=== PATIENT | male | born 1965 | race Caucasian/White ===

== ENCOUNTER 2019-04-11 02:35 | Inpatient (IN) | payer BC ==
[~2019-04-11] VITALS: Ht 177.8 cm; Wt 105.3 kg
[2019-04-11] VITALS (19 sets, daily range): BP systolic 119–158; BP diastolic 91–114; PULSE 86–101; RESP 14–35; Ht 177.8 cm; Wt 105.3 kg
[2019-04-11] MEDS ORDERED: NITROGLYCERIN (SL) 0.4 MG TAB SL ONE (03:30)
--- NOTE | 2019-04-11 03:31 | ERD ---
ER Documentation Chief Complaint Chief Complaint chest pain x 3 days HPI This is a 54-year-old male with chest pain for the past 3 days,. He said he became acutely worse earlier today. Denies fevers chills nausea vomiting. Does complain of mild shortness of breath. Mild nausea but no vomiting. No other current complaints. ROS All systems reviewed and are negative except as per history of present illness. Allergies Allergies: Coded Allergies: No Known Drug Allergies (Verified Allergy, Unknown, 04/11/19) Physical Exam Vitals Vital Signs Date Temp Pulse Resp B/P (MAP) Pulse Ox O2 O2 Flow FiO2 Time Delivery Rate 04/11/19 Nasal 4 03:27 Cannula 04/11/19 97.2 90 18 161/103 90 03:10 (122) Physical Exam Const: No acute distress Head: Atraumatic Eyes: Normal Conjunctiva ENT: Normal External Ears, Nose and Mouth. Neck: Full range of motion. No meningismus. Resp: Clear to auscultation bilaterally Cardio: Regular rate and rhythm, no murmurs Abd: Soft, non tender, non distended. Normal bowel sounds Skin: No petechiae or rashes Back: No midline or flank tenderness Ext: No cyanosis, or edema Neur: Awake and alert Psych: Normal Mood and Affect Results 24 hrs Current Medications Medications Dose Sig/Moises Start Time Status Last (Trade) Ordered Route PRN Stop Time Admin Dose Reason Admin 1 tab ONCE ONCE 04/11/19 Nitroglycerin SL 03:30 04/11/19 03:31 (Nitroglyceri n (Sl Tab) 0.4 Mg) Procedures/MDM EKG: Rate/Rhythm: [Normal Sinus Rhythm] QRS, ST, T-waves: Vision 1 aVL V4 V5 Impression: STEMI Chest X-ray 1V Interpreted by me: Soft Tissue: No acute abnormalities Bones: No acute abnormalities Mediastinum/Cardiac Silhouette/Lungs: [No acute abnormalities] Medical decision making: This is a 54-year-old male with STEMI. Dr. Blake is on-call and is agreed to activate the catheter. Patient will be admitted to panel. Departure Diagnosis: Primary Impression: STEMI (ST elevation myocardial infarction) Involved coronary artery: unspecified coronary artery Qualified Codes: I21.3 - ST elevation (STEMI) myocardial infarction of unspecified site Condition: Critical NYASIA TRIMBLE Apr 11, 2019 03:31
[2019-04-11] MEDS ORDERED: NITROGLYCERIN (IC) 100 MCG/ML INJ ONE (03:52)
[2019-04-11] MEDS ORDERED: VERAPAMIL 5 MG INJ ONE (03:52)
[2019-04-11] MEDS ORDERED: LIDOCAINE 1% (MDV) 20 ML INJ ONE (03:52)
[2019-04-11] MEDS ORDERED: IODIXANOL LOCM 100 ML BTL ONE ×3 (03:52→04:47)
[2019-04-11] MEDS ORDERED: IOHEXOL 350MG/ML 50 ML BTL ONE (03:52)
[2019-04-11] MEDS ORDERED: HEPARIN 1000 UNITS/ML 10 ML INJ ONE (03:52)
[2019-04-11] MEDS ORDERED: FENTAnyl 50 MCG/ML VIAL ONE (03:55)
[2019-04-11] MEDS ORDERED: MIDAZOLAM 1 MG/ML 2 ML INJ ONE (03:56)
[2019-04-11] MEDS ORDERED: ONDANSETRON 4 MG INJ IV PRN (04:00)
[2019-04-11] MEDS ORDERED: morphine 2 MG INJ IV PRN (04:00)
[2019-04-11] MEDS ORDERED: NITROGLYCERIN (SL) 0.4 MG TAB SL PRN (04:00)
[2019-04-11] MEDS ORDERED: DOCUSATE SODIUM 100 MG CAP PO PRN (04:00)
[2019-04-11] MEDS ORDERED: BISACODYL (EC) 5 MG TAB PO PRN (04:00)
[2019-04-11] MEDS ORDERED: ASPIRIN 81 MG TAB ONE (04:01)
--- NOTE | 2019-04-11 04:08 | CONS ---
Assessment/Plan Assessment/Plan Hospital Course (Demo Recall) 54 yo with htn and hypercholesterolemia presents with STEMI, probably extensive given lateral and anterior ST elevations. Imp: STEMI htn, uncontrolled at present hypercholesterolemia hypokalemia Plan: Cor angio. Risks and benefits reviewed, he agrees to proceed and all questions answered. ASA and heparin given in cork slabs sawyer. Echo in am Troponin pending. Will replete K Further plans post procedure Consultation Date/Type/Reason Admit Date/Time Date of Consultation: Apr 11, 2019 Type of Consult Cardiology Reason for Consultation STEMI Requesting Provider: NYASIA TRIMBLE Date/Time of Note DATE: 04/11/19 TIME: 04:03 Hx of Present Illness 54 yo with htn, hyperlipidemia presents w headache and cp x 2 days intermittent, this episode started last night around 10 pm and did not go away. Pain associated with dyspnea. Pt follows with Dr. Chester Nieto, has seen him recently, on metoprolol for hypertension and pravastatin for cholesterol, takes medications regularly, sbp at home 120s-140s over 80s. No smoking, no alcohol at present, no drugs, family history of cva in his father at 54 yo. No plans for upcoming surgeries, no bleeding issues. Constitutional: no complaints Eyes: no complaints ENT: no complaints Respiratory: shortness of breath Cardiovascular: chest pain Gastrointestinal: no complaints Genitourinary: no complaints Musculoskeletal: no complaints Skin: no complaints Neurologic: headache Endocrine: no complaints Lymphatic: no complaints Psychological: no complaints Immunologic: no complaints Past Medical History Medical History: high cholesterol, hypertension Medications Current Medications Sodium Chloride 1,000 ml @ 75 mls/hr [id number] IV ; Start 04/11/19 at 03:50 Ondansetron HCl (Zofran Inj) 4 mg Q6H PRN IV NAUSEA AND/OR VOMITING; Start 04/11/19 at 04:00 Albuterol (Proventil 0.083% (Neb)) 2.5 mg Q4H RESP THERAPY NEB ; Start 04/11/19 at 05:00 Ipratropium [place] (Atrovent 0.02% (Neb)) 0.5 mg Q4H RESP THERAPY NEB ; Start 04/11/19 at 05:00 Nitroglycerin (Nitroglycerin (Sl Tab) 0.4 Mg) 1 tab Q5M PRN SL CHEST PAIN; Start 04/11/19 at 04:00 Acetaminophen (Tylenol Liquid) 650 mg Q6H PRN PO PAIN LEVEL 1-3 OR FEVER; Start 04/11/19 at 04:00 Morphine Sulfate (morphine) 2 mg Q4H PRN IV PAIN LEVEL 7-10; Start 04/11/19 at 04:00 Docusate Sodium (Colace) 100 mg Q12H PRN PO CONSTIPATION; Start 04/11/19 at 04:00 Bisacodyl (Dulcolax) 5 mg DAILY PRN PO CONSTIPATION; Start 04/11/19 at 04:00 Famotidine (Pepcid Iv) 20 mg Q12 IV ; Start 04/11/19 at 09:00 Allergies: Coded Allergies: No Known Drug Allergies (Verified Allergy, Unknown, 04/11/19) Family History Significant Family History: other (father had a cva at 54) Social History Alcohol Use: none Smoking Status: Never smoker Drug Use: none Exam/Review of Systems Vital Signs Vitals Vital Signs Date Temp Pulse Resp B/P (MAP) Pulse Ox O2 O2 Flow FiO2 Time Delivery Rate 04/11/19 106 25 162/111 97 Nasal 4.0 03:34 (128) Cannula 04/11/19 97.2 03:10 Exam Constitutional: alert, oriented, well developed Psych: nl mood/affect Head: normocephalic, atraumatic Eyes: nl conjunctiva, EOMI, nl lids, nl sclera ENMT: nl external ears & nose, nl lips & teeth, nl nasal mucosa & septum Neck: supple; No jvd, No bruits Respiratory: clear to auscultation, normal air movement Cardiovascular: regular rate and rhythm, nl pulses; No murmurs/extra sounds Gastrointestinal: soft, nl liver, spleen, non-tender Musculoskeletal: nl extremities to inspection Extremities: normal pulses; No edema Neurological: nl mental status, nl speech Skin: nl turgor; No rash or lesions Labs Result Diagram: 04/11/19 0324 04/11/19 0324 Results 24hrs Laboratory Tests Test 04/11/19 03:24 White Blood Count 8.0 Red Blood Count 5.49 Hemoglobin 16.0 Hematocrit 47.9 Mean Corpuscular Volume 87.2 Mean Corpuscular Hemoglobin 29.1 Mean Corpuscular Hemoglobin Concent 33.4 Red Cell Distribution Width 12.1 Platelet Count 183 Mean Platelet Volume 10.7 H Immature Granulocytes % 0.400 Neutrophils % 76.8 Lymphocytes % 16.8 Monocytes % 4.4 Eosinophils % 1.1 Basophils % 0.5 Nucleated Red Blood Cells % 0.0 Immature Granulocytes # 0.030 Neutrophils # 6.2 Lymphocytes # 1.4 Monocytes # 0.4 Eosinophils # 0.1 Basophils # 0.0 Nucleated Red Blood Cells # 0.0 Sodium Level 142 Potassium Level 3.4 L Chloride Level 102 Carbon Dioxide Level 27 Anion Gap 13 Blood Urea Nitrogen 13 Creatinine 0.85 Est Glomerular Filtrat Rate mL/min > 60 Glucose Level 255 H Calcium Level 8.8 Total Bilirubin 0.7 Direct Bilirubin 0.00 Indirect Bilirubin 0.7 Aspartate Amino Transf (AST/SGOT) 161 H Alanine Aminotransferase (ALT/SGPT) 67 Alkaline Phosphatase 107 Troponin I Pending B-Type Natriuretic Peptide Pending Total Protein 7.5 Albumin 4.2 Globulin 3.30 H Albumin/Globulin Ratio 1.27 Imaging Imaging EKG shows sinus tachycardia at 103 bpm, ST elevations I, IVL, V1-V5, reciprocal depressions in the inferior leads and V6 Medications Medications Current Medications Sodium Chloride 1,000 ml @ 75 mls/hr [id number] IV ; Start 04/11/19 at 03:50 Ondansetron HCl (Zofran Inj) 4 mg Q6H PRN IV NAUSEA AND/OR VOMITING; Start 04/11/19 at 04:00 Albuterol (Proventil 0.083% (Neb)) 2.5 mg Q4H RESP THERAPY NEB ; Start 04/11/19 at 05:00 Ipratropium [place] (Atrovent 0.02% (Neb)) 0.5 mg Q4H RESP THERAPY NEB ; Start 04/11/19 at 05:00 Nitroglycerin (Nitroglycerin (Sl Tab) 0.4 Mg) 1 tab Q5M PRN SL CHEST PAIN; Start 04/11/19 at 04:00 Acetaminophen (Tylenol Liquid) 650 mg Q6H PRN PO PAIN LEVEL 1-3 OR FEVER; Start 04/11/19 at 04:00 Morphine Sulfate (morphine) 2 mg Q4H PRN IV PAIN LEVEL 7-10; Start 04/11/19 at 04:00 Docusate Sodium (Colace) 100 mg Q12H PRN PO CONSTIPATION; Start 04/11/19 at 04:00 Bisacodyl (Dulcolax) 5 mg DAILY PRN PO CONSTIPATION; Start 04/11/19 at 04:00 Famotidine (Pepcid Iv) 20 mg Q12 IV ; Start 04/11/19 at 09:00 WALI MCCRACKEN Apr 11, 2019 04:08
[2019-04-11] MEDS ORDERED: POTASSIUM CHLORIDE 50 ML ONE (04:16)
--- NOTE | 2019-04-11 04:28 | QN ---
Documentation Comment I put in ICU admission orders for this patient and then went to evaluate the patient for admission. I was notified by the data entry processor Dr. Wolff that the patient's primary care physician is Dr. Chester Nieto. I notified the emergency department Dr. Carter who spoke with Dr. Escamilla who was on-call for , who accepted the patient. I put in a change admit order. SAMIR RIZZO Apr 11, 2019 04:28
[2019-04-11] MEDS: ALBUTEROL 0.083% (NEB) 2.5 MG/3 ML AMP NEB SCH ×5 (05:00→20:13)
[2019-04-11] MEDS: IPRATROPIUM (NEB) 0.5 MG/2.5 ML AMP NEB SCH ×5 (05:00→20:13)
[2019-04-11] MEDS ORDERED: TICAGRELOR 90 MG TABLET ONE (05:03)
[2019-04-11] MEDS ORDERED: SOD CHLORIDE 0.9% 1,000 ML IV SCH (05:12)
--- NOTE | 2019-04-11 05:27 | OPR ---
Date/Time of Note Date/Time of Note DATE: 04/11/19 TIME: 05:18 Operative Report Procedure Date: Apr 11, 2019 Preoperative Diagnosis STEMI Postoperative Diagnosis STEMI anterior wall Operation/Procedure Performed coronary angio, left heart cath, moderate sedation, PCI with stents to prox and mid LAD Surgeon see signature line Fruit Trimmer Vanessa BREAD ROOM HAND Anesthesia Type: moderate sedation Estimated Blood Loss: 100 - 150 ml's Transfusion none Specimen none Grafts/Implants Synergy 2.5x20 to mid LAD and Synergy 3.5x24 to prox LAD Complications none Pt Condition Post Procedure: stable Disposition: other (ICU) Indications 54 year old with 3 days intermittent headache and cp, presenting with STEMI Procedure Description Procedure: Informed consent obtained. Patient brought to the labor economics teacher emergently. Versed and Fentanyl given for conscious sedation. Lidocaine used for local anesthesia. Using modified Seldinger technique, the right radial artery was accessed and a 6f sheath placed. Nitro, heparin, and verapamil given through the side arm of the sheath. All catheters exchanged over a long J wire. A [place] catheter crossed the aortic valve and pressures were measured including a pullback. A JL4 guide and JR4 diagnostic catheter were used to take diagnostic images, engaged the LM and RCA respectively, images taken in multiple projections. It was decided to proceed with PCI of the LAD. Additional heparin given and an ACT checked. A [place] Blue wire was advanced to the distal LAD. A 2.5 x 12 mm balloon was inflated in the proximal and mid lesions. The mid lesion was stented 2.5x20 stent, then the proximal 3.5x24 stent. The mid lesion was then post-dilated in its proximal portion with a 3.0x12 mm noncompliant balloon. Images obtained including a wire out shot demonstrating good apposition of the stents and no evidence of dissection. Patient received Ticagrelor 180 mg at the end of the procedure. The radial sheath was removed and a TR band placed. No complications. Case d/w Dr. Escamilla animal damage control agent for Dr. Nieto. Patient to go to the ICU. Door to balloon time was prolonged due to atypical chief complaint of headache, and as a result a prolonged time from door to initial EKG. Findings: LM- normal LAD - 90% prox which is the culprit lesion, KIERRA 2 flow, lesion length 18 mm. 70% mid, lesion length 14 mm. The remainder of the LAD has moderate diffuse disease. Prox LAD stented with a Synergy 3.5x24 mm stent, and mid LAD with a Synergy 2.5x20 mm stent and post-dilated in the proximal portion with a 3.0x12 mm noncompliant balloon LCX - mild diffuse disease RCA - dominant with mild luminal irregularities LVEDP - 21 WALI MCCRACKEN Apr 11, 2019 05:27
[2019-04-11] MEDS ORDERED: ATORVASTATIN 80 MG TAB PO ONE (05:30)
[2019-04-11] MEDS: SOD CHLORIDE 0.9% 1,000 ML IV SCH ×2 (06:08→18:30)
[2019-04-11] MEDS ORDERED: GLUCOSE GEL 15 GRAM TUBE PO PRN ×2 (08:00)
[2019-04-11] MEDS ORDERED: DEXTROSE 50% 50 ML SYRINGE IV PRN ×2 (08:00)
[2019-04-11] MEDS ORDERED: GLUCAGON 1 MG INJ IM PRN (08:00)
[2019-04-11] MEDS ORDERED: GLUCOSE GEL 15 GRAM TUBE BUCCAL PRN (08:00)
--- NOTE | 2019-04-11 08:47 | HP ---
DATE OF ADMISSION: 04/11/2019 ADMITTING DIAGNOSIS: ST elevation myocardial infarction. HISTORY OF PRESENT ILLNESS: The patient is a 54-year-old male with hypertension, hyperlipidem ia, prediabetes, who presented to the emergency room with intermittent chest pain since Thursday. The patient noted substernal chest pain pressure with associated shortness of breath on Thursday when lifti ng some heavy sinks while working. The pain went away. The patient did not do anything else. The p atient continued to have pain on and off over the weekend and had increasing pain that would not go a way Thursday. The patient walked to the emergency room 2 to 2.5 blocks with some shortness of breath a nd chest pressure during that time. The patient has been having intermittent severe headaches during this time as well. No palpitations, no orthopnea. No fevers, chills or night sweats. REVIEW OF SYSTEMS: Otherwise unremarkable. PAST MEDICAL HISTORY: Hyperlipidemia, hypertension, prediabetes. PAST SURGICAL HISTORY: None. FAMILY HISTORY: Father had a stroke at age 54. SOCIAL HISTORY: No alcohol. No smoking. PHYSICAL EXAMINATION: VITAL SIGNS: Temperature is 98.6, pulse 95, blood pressure 137/101, oxygen saturation 94% on 2 liter s nasal cannula oxygen. The patient presented with a temperature of 97.2, pulse 90, respirations 18, blood pressure 161/103 with an oxygen saturation of 90%. GENERAL: Well-developed, well-nourished male, in no acute distress, lying flat in bed. HEENT: EOMI, PERRLA. Oropharynx is clear except for decreased mucus pooling. NECK: No jugular venous distention, 2+ carotid upstroke without bruits. No lymphadenopathy, no thyr omegaly. CHEST: Scant crackles at bilateral bases, otherwise clear. HEART: Tachycardic, but regular. No murmurs, gallops or rubs noted. ABDOMEN: Mild obesity, no hepatosplenomegaly. No jugular reflux. Normoactive bowel sounds, nontend er. GENITOURINARY: Normal male. No masses. EXTREMITIES: 2+ femoral pulses, posterior tibialis and dorsal pedis 2+. No cyanosis, clubbing or ed beatrice in the extremities. NEUROLOGIC: Nonfocal. LABORATORY DATA: Sodium 142, potassium 3.4, chloride 102, bicarbonate 27, BUN of 13, creatinine 0.85 , glucose of 255. Hemoglobin A1c was 7.5%, total bilirubin 0.7, AST 161, ALT of 67. Alkaline phosph atase is 107. Troponin 4.49. Brain natriuretic peptide 274, albumin 4.2, hemoglobin of 16.0, hemato crit 47.9, platelets 183. White blood cell count 8.0. Chest x-ray shows pulmonary vascular congesti on, cardiomegaly, shallow inspiration with subsegmental atelectasis bilaterally. Degenerative change s in the spine. IMAGING STUDIES: EKG shows anterolateral ST elevation consistent with ST elevation myocardial infarc tion. ASSESSMENT AND PLAN: The patient is a 54-year-old male with hypertension, diabetes, hyperlipi demia, now status post ST elevation myocardial infarction, status post stenting by Dr. Wolff. The patient also with mild congestive heart failure and preliminary ejection fraction by echocardiogram shows global hypokinesis with an ejection fraction of approximately 30%. The patient will be stabili zed in the ICU. Continue on Brilinta, Losartan, atorvastatin, aspirin and metoprolol. Continue with current medications and adjust as needed. We will follow serial CKs, troponins and EKGs. The patie nt will have cardiac rehab consult as well. 2. Hyperlipidemia. Continue with diet and atorvastatin. 3. Diabetes. This is new onset. We will have diabetes educators to the patient, sliding scale with moderate NovoLog scale, diet and we will place the patient on medications prior to discharge. Dictated By: RACHEL MANZANARES MD SR/NTS Conf#: [id number] DID#: [id number] CC: VINCENT BRASWELL MD;*End*
[2019-04-11] MEDS ORDERED: METOPROLOL (XL) 50 MG TAB PO SCH (09:00)
[2019-04-11] MEDS ORDERED: FAMOTIDINE 20 MG INJ IV SCH (09:00)
[2019-04-11] MEDS: LOSARTAN 25 MG TAB PO SCH ×2 (09:00→20:44)
[2019-04-11] MEDS ORDERED: METOPROLOL (XL) 100 MG TAB PO ONE (09:00)
[2019-04-11] MEDS: TICAGRELOR 90 MG TABLET PO SCH ×2 (10:03→20:54)
[2019-04-11] MEDS: ASPIRIN (EC) 81 MG TAB PO SCH (10:09)
[2019-04-11] MEDS: INSULIN ASPART [NOVOLOG] 3 ML PEN SC SCH ×3 (11:30→20:54)
--- NOTE | 2019-04-11 13:56 | RADRPT ---
Echocardiogram Report Patient Name: RACHEL RUDD APatient ID: [id number] : 1965 (54y )Study Date: 04/11/2019 7:38:06 AM Gender: MAccession #: [id number] Tech: SagarApril Conteh [facility] Location: 111 Ref.Physician: SAMIR RIZZO Height(Cm): BSA: Weight(Kg): Quality: AdequateOrder Physician: SAMIR RIZZO Account #: Procedures: Echocardiographic Report: Transthoracic echocardiogram with complete 2D, M-Mode, and doppler examination. Indications: STEMI. Measurements: 2D/M Mode Doppler Measurement Value Normal Range Measurement Value Normal Range LVIDd 2D 3.8 [ 4.2 - 5.8 ] cm AV Peak [place] 1.4 [ 100.0 - 170.0 ] cm/sec LVIDs 2D 3.4 [ 2.5 - 4.0 ] cm AV Peak PG 8.0 [ 2.0 - 9.0 ] mmHg IVSd 2D 1.6 [ 0.6 - 1.0 ] cm MV E Peak [place] 0.7 [ 60.0 - 130.0 ] cm/sec AoR Diam 2D 2.8 [ 2.6 - 3.4 ] cm MV A Peak [place] 1.0 [ 100.0 - 120.0 ] cm/sec LA Dimen 2D 3.4 [ 3.0 - 4.0 ] cm MV E/A 0.7 [ 0.8 - 1.5 ] ratio MV Decel Time 102 [ 104 - 258 ] msec MV E/A 0.7 [ 0.8 - 1.5 ] ratio Findings: Left Ventricle: Normal left ventricular cavity size. Moderate concentric left ventricular hypertrophy. Severe left ventricular systolic dysfunction. Ejection fraction is visually estimated at 25 %. Tissue Doppler/Mitral Doppler indices are consistent with impaired relaxation (Stage I diastolic dysfunction). These segments of the LV are akinetic mid anterior segment, apical anterior segment, apical lateral segment, anterolateral mid segment, apical inferior segment, inferoseptum mid segment, anteroseptum mid segment, apical cap and apical septum segment. Right Ventricle: Normal right ventricular size. Normal right ventricular systolic function. Left Atrium: The left atrium is normal in size. Right Atrium: The right atrium is normal in size. Mitral Valve: Normal appearance and function of the mitral valve with trace physiologic regurgitation. Aortic Valve: No hemodynamically significant aortic stenosis by doppler. Aortic cusps appear mildly calcified. Trace aortic valve regurgitation. Tricuspid Valve: Normal appearance and function of the tricuspid valve with trace physiologic regurgitation. Normal right ventricular systolic pressure. Pulmonic Valve: Pulmonic valve not well visualized. Pericardium: Normal pericardium with no significant pericardial effusion. Aorta: Normal aortic root. IVC: Dilated IVC with respiratory collapse consistent with elevated right atrial pressure. Conclusions: Moderate concentric left ventricular hypertrophy. Severely reduced left ventricular systolic function with a large LAD distribution wall motion abnormality. Grade 1 diastolic dysfunction. Trace aortic regurgitation. Trace tricuspid regurgitation and normal estimated pulmonary pressures. Dilated IVC suggests elevated right atrial pressure. Electronically Signed By: Gabriela Wolff 2019-04-11 13:56:19 PDT
[2019-04-11] MEDS: SPIRONOLACTONE 25 MG TAB PO SCH (14:34)
[2019-04-11] MEDS: ATORVASTATIN 80 MG TAB PO SCH (20:43)
[2019-04-11] MEDS: FAMOTIDINE 20 MG TAB PO SCH (20:44)
[2019-04-12] VITALS (22 sets, daily range): BP systolic 96–153; BP diastolic 65–97; PULSE 78–107; RESP 9–29
[2019-04-12] MEDS: IPRATROPIUM (NEB) 0.5 MG/2.5 ML AMP NEB SCH ×2 (01:09→09:00)
[2019-04-12] MEDS: ALBUTEROL 0.083% (NEB) 2.5 MG/3 ML AMP NEB SCH ×2 (01:09→09:00)
[2019-04-12] MEDS: INSULIN ASPART [NOVOLOG] 3 ML PEN SC SCH ×4 (08:11→21:00)
[2019-04-12] MEDS: ASPIRIN (EC) 81 MG TAB PO SCH (08:13)
[2019-04-12] MEDS: SPIRONOLACTONE 25 MG TAB PO SCH (08:13)
[2019-04-12] MEDS: LOSARTAN 25 MG TAB PO SCH (08:13)
[2019-04-12] MEDS: FAMOTIDINE 20 MG TAB PO SCH ×2 (08:13→20:58)
[2019-04-12] MEDS: METOPROLOL (XL) 50 MG TAB PO SCH (08:13)
[2019-04-12] MEDS: TICAGRELOR 90 MG TABLET PO SCH ×2 (08:14→20:59)
[2019-04-12] MEDS ORDERED: IPRATROPIUM (NEB) 0.5 MG/2.5 ML AMP NEB PRN (11:00)
[2019-04-12] MEDS ORDERED: ALBUTEROL 0.083% (NEB) 2.5 MG/3 ML AMP NEB PRN (11:00)
[2019-04-12] MEDS: ACETAMINOPHEN 650MG/20.3ML CUP PO PRN ×3 (12:25→22:36)
--- NOTE | 2019-04-12 14:46 | RADRPT ---
Vent Rate: 106 bpm RR Interval: 564 msec CA Interval: 175 msec QRS Duration: 97 msec QT Interval: 371 msec QTC Interval: 494 msec P-R-T [place]: 55 - -77 - 85 degrees Sinus tachycardia...rate> 99 Inferior infarct, acute...ST>0.10mV, T upright, II III aVF Anterior infarct, acute..Q >30mS, ST >0.15mV, T neg, V2-V5 Electronically Signed By: Avtar Mackenzie
--- NOTE | 2019-04-12 15:01 | RADRPT ---
Vent Rate: 90 bpm RR Interval: 664 msec AL Interval: 185 msec QRS Duration: 95 msec QT Interval: 409 msec QTC Interval: 502 msec P-R-T [place]: 66 - -85 - 95 degrees Sinus rhythm...normal P axis, V-rate 50- 99 Left anterior fascicular block...axis(240,-40), init forces inf Anterior infarct, recent...Q >30mS, ST >0.15mV, T neg, V2-V5 Prolonged QT interval...QTc >500mS Electronically Signed By: Avtar Mackenzie
--- NOTE | 2019-04-12 15:29 | CONS ---
Assessment/Plan Assessment/Plan Hospital Course (Demo Recall) 54 yo with large anterior wall STEMI, LVEF 25%, with fever and probable pneumonia. Imp: STEMI anterior wall s/p PCI and 2 stents to LAD, prox and mid HTN, now under better control hypercholesterolemia fever, probable nosocomial pneumonia DM2, newly diagnosed Plan: ASA and ticagrelor, high intensity atorvastatin Metoprolol XL 200 mg daily, spironolactone, and will change losartan to Entresto (nyha class III, EF 25%) Patient would benefit from a LifeVest as he is at high risk of sudden cardiac given his recent WI and severely reduced LV systolic function. Patient will ideally go home with a Lifevest to reduce risk of sudden cardiac . 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 If LVEF does not recover, will have to discuss benefit of placing an ICD versus continuing to drive commercially -- if ICD placed he will not be eligible to drive commercially. RX diabetes as per primary, patient has received diabetes education Rx PNA as per primary Consultation Date/Type/Reason Admit Date/Time Apr 11, 2019 at 03:43 Initial Consult Date 04/11/19 Type of Consult Cardiology Requesting Provider: NYASIA TRIMBLE Date/Time of Note DATE: 04/12/19 TIME: 15:17 24 HR Interval Summary Free Text/Dictation Patient has no chest pain, but is coughing. No dyspnea. No wrist pain. Exam/Review of Systems Vital Signs Vitals Vital Signs Date Temp Pulse Resp B/P (MAP) Pulse Ox O2 O2 Flow FiO2 Time Delivery Rate 04/12/19 86 16 125/93 96 Room Air 14:00 (104) 04/12/19 100.5 13:10 04/12/19 21 04:35 04/11/19 2.0 19:50 Intake and Output 04/11/19 04/11/19 04/12/19 1515:00 23:00 07:00 IntakeIntake Total 600 ml 595 ml 275 ml OutputOutput Total 1500 ml 300 ml 1250 ml BalanceBalance -900 ml 295 ml -975 ml Exam Constitutional: alert, oriented, well developed, other (obese) Psych: no complaints, nl mood/affect Head: normocephalic, atraumatic Eyes: EOMI, nl lids ENMT: nl external ears & nose Neck: supple; No jvd, No bruits Respiratory: clear to auscultation, normal air movement Cardiovascular: regular rate and rhythm; No murmurs/extra sounds Gastrointestinal: soft, nl liver, spleen, non-tender Musculoskeletal: nl extremities to inspection Extremities: No edema Neurological: nl mental status, nl speech Skin: diaphoresis Labs Result Diagram: 04/12/19 0535 04/12/19 0535 Results 24hrs Laboratory Tests Test 04/11/19 17:33 04/11/19 20:27 04/12/19 05:35 04/12/19 08:07 Bedside Glucose 206 210 White Blood Count 11.2 #H Red Blood Count 5.22 Hemoglobin 15.2 Hematocrit 44.5 Mean Corpuscular 85.2 Volume Mean Corpuscular 29.1 Hemoglobin Mean Corpuscular 34.2 Hemoglobin Concent Red Cell 12.7 Distribution Width Platelet Count 160 Mean Platelet Volume 11.2 H Immature 0.400 Granulocytes % Neutrophils % 79.9 H Lymphocytes % 9.3 L Monocytes % 9.7 Eosinophils % 0.3 Basophils % 0.4 Nucleated Red Blood 0.0 Cells % Immature 0.050 H Granulocytes # Neutrophils # 9.0 H Lymphocytes # 1.1 Monocytes # 1.1 H Eosinophils # 0.0 Basophils # 0.1 Nucleated Red Blood 0.0 Cells # Sodium Level 136 Potassium Level 3.8 Chloride Level 106 Carbon Dioxide Level 23 Anion Gap 7 Blood Urea Nitrogen 9 Creatinine 0.71 Est Glomerular > 60 Filtrat Rate mL/min Glucose Level 178 Calcium Level 8.6 Triglycerides Level 72 Cholesterol Level 150 LDL Cholesterol, 92 Calculated HDL Cholesterol 44 Cholesterol/HDL 3.4 Ratio Troponin I 105.000 *H Test 04/12/19 08:08 04/12/19 12:14 Bedside Glucose 165 211 Imaging Imaging EKG this am shows sinus tachycardia at 106 bpm, ST elevations have improved in anterior and lateral leads, but with new Q's in anteroseptal and anterior leads. Echo with LVEF 25% and large LAD distribution wall motion abnormality Medications Medications Current Medications Ondansetron HCl (Zofran Inj) 4 mg Q6H PRN IV NAUSEA AND/OR VOMITING; Start 04/11/19 at 04:00 Nitroglycerin (Nitroglycerin (Sl Tab) 0.4 Mg) 1 tab Q5M PRN SL CHEST PAIN; Start 04/11/19 at 04:00 Acetaminophen (Tylenol Liquid) 650 mg Q6H PRN PO PAIN LEVEL 1-3 OR FEVER Last administered on 04/12/19at 12:25; Admin Dose 650 MG; Start 04/11/19 at 04:00 Morphine Sulfate (morphine) 2 mg Q4H PRN IV PAIN LEVEL 7-10; Start 04/11/19 at 04:00 Docusate Sodium (Colace) 100 mg Q12H PRN PO CONSTIPATION; Start 04/11/19 at 04:00 Bisacodyl (Dulcolax) 5 mg DAILY PRN PO CONSTIPATION; Start 04/11/19 at 04:00 Aspirin (Halfprin) 81 mg DAILY PO Last administered on 04/12/19at 08:13; Admin Dose 81 MG; Start 04/11/19 at 09:00 Ticagrelor (Brilinta) 90 mg BID PO Last administered on 04/12/19at 08:14; Admin Dose 90 MG; Start 04/11/19 at 09:00 Atorvastatin Calcium (Lipitor) 80 mg DAILY@21 PO Last administered on 04/11/19at 20:43; Admin Dose 80 MG; Start 04/11/19 at 21:00 Insulin Aspart (Novolog Insulin Pen) NOVOLOG *MODERATE* ALGORITHM WITH MEALS BEDTIME SC Last administered on 04/12/19at 12:16; Admin Dose 4 UNIT; Start 04/11/19 at 11:30 Miscellaneous Information 1 ea NOTE XX ; Start 04/11/19 at 08:00 Glucose (Glutose) 15 gm Q15M PRN PO DECREASED GLUCOSE; Start 04/11/19 at 08:00 Glucose (Glutose) 22.5 gm Q15M PRN PO DECREASED GLUCOSE; Start 04/11/19 at 08:00 Dextrose (D50w Syringe) 25 ml Q15M PRN IV DECREASED GLUCOSE; Start 04/11/19 at 08:00 Dextrose (D50w Syringe) 50 ml Q15M PRN IV DECREASED GLUCOSE; Start 04/11/19 at 08:00 Glucagon (Glucagen) 1 mg Q15M PRN IM DECREASED GLUCOSE; Start 04/11/19 at 08:00 Glucose (Glutose) 15 gm Q15M PRN BUCCAL DECREASED GLUCOSE; Start 04/11/19 at 08:00 Famotidine (Pepcid) 20 mg Q12 PO Last administered on 04/12/19at 08:13; Admin Dose 20 MG; Start 04/11/19 at 21:00 Spironolactone (Aldactone) 25 mg DAILY PO Last administered on 04/12/19at 08:13; Admin Dose 25 MG; Start 04/11/19 at 14:30 Metoprolol Succinate (Toprol Xl) 200 mg DAILY PO Last administered on 04/12/19 08:13; Admin Dose 200 MG; Start 04/12/19 at 09:00 Albuterol (Proventil 0.083% (Neb)) 2.5 mg Q6H RESP THERAPY PRN NEB wheezing; Start 04/12/19 at 11:00 Ipratropium [place] (Atrovent 0.02% (Neb)) 0.5 mg Q6H RESP THERAPY PRN NEB wheezing; Start 04/12/19 at 11:00 Sacubitril/ Valsartan (Entresto 24 Mg-26 Mg) 1 tab BID PO ; Start 04/12/19 at 21:00 WALI MCCRACKEN Apr 12, 2019 15:28
[2019-04-12] MEDS: PIPER-TAZO 3.375 GM IV (PMX) 100 ML IVPB SCH (19:59)
[2019-04-12] MEDS: SACUBITRIL/VALSARTAN (24mg-26mg) TABLET PO SCH (20:58)
[2019-04-12] MEDS: ATORVASTATIN 80 MG TAB PO SCH (20:58)
[2019-04-13] VITALS (11 sets, daily range): BP systolic 96–122; BP diastolic 62–81; PULSE 70–114; RESP 16–20
[2019-04-13] MEDS: PIPER-TAZO 3.375 GM IV (PMX) 100 ML IVPB SCH ×4 (02:33→17:53)
[2019-04-13] MEDS: INSULIN ASPART [NOVOLOG] 3 ML PEN SC SCH ×4 (08:11→21:02)
[2019-04-13] MEDS: ASPIRIN (EC) 81 MG TAB PO SCH (08:13)
[2019-04-13] MEDS: FAMOTIDINE 20 MG TAB PO SCH ×2 (08:14→20:31)
[2019-04-13] MEDS: METOPROLOL (XL) 50 MG TAB PO SCH (08:14)
[2019-04-13] MEDS: SACUBITRIL/VALSARTAN (24mg-26mg) TABLET PO SCH ×2 (08:14→20:31)
[2019-04-13] MEDS: SPIRONOLACTONE 25 MG TAB PO SCH (08:14)
[2019-04-13] MEDS: TICAGRELOR 90 MG TABLET PO SCH ×2 (08:15→21:02)
--- NOTE | 2019-04-13 08:45 | CONS ---
Assessment/Plan Assessment/Plan Hospital Course (Demo Recall) 54 yo with large anterior wall STEMI, LVEF 25%, with fever and probable pneumonia. Imp: STEMI anterior wall s/p PCI and 2 stents to LAD, prox and mid HTN, now under better control hypercholesterolemia fever, probable nosocomial pneumonia DM2, newly diagnosed Plan: ASA and ticagrelor, high intensity atorvastatin Metoprolol XL 200 mg daily, spironolactone, Entresto 24/26 bid (nyha class III, EF 25%) Patient would benefit from a LifeVest as he is at high risk of sudden cardiac given his recent NV and severely reduced LV systolic function. Patient will ideally go home with a Lifevest to reduce risk of sudden cardiac . 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 If LVEF does not recover, will have to discuss benefit of placing an ICD versus continuing to drive commercially -- if ICD placed he will not be eligible to drive commercially. We had this discussion briefly today, and will assess his post-NV progress as an outpatient to make decisions regarding ICD RX diabetes as per primary, patient has received diabetes education Rx PNA as per Dr. Nieto Discussed better diet habits -- pt ate donuts for breakfast, fast food for many meals, ie [employer], discussed importance of better food choice going forward Discharge plans as per Dr. Nieto, patient would benefit from another day of iv antibiotics Consultation Date/Type/Reason Admit Date/Time Apr 11, 2019 at 03:43 Initial Consult Date 04/11/19 Type of Consult Cardiology Requesting Provider: NYASIA TRIMBLE Date/Time of Note DATE: 04/13/19 TIME: 08:40 24 HR Interval Summary Free Text/Dictation Patient complains of a mild cough, no chest pain, no wrist pain, has ambulated, asking questions about medications, exercise, diet. Exam/Review of Systems Vital Signs Vitals Vital Signs Date Temp Pulse Resp B/P (MAP) Pulse Ox O2 O2 Flow FiO2 Time Delivery Rate 04/13/19 99.2 88 20 117/76 96 Room Air 07:12 (90) 04/13/19 21 03:59 04/11/19 2.0 19:50 Intake and Output 04/12/19 04/12/19 04/13/19 1515:00 23:00 07:00 IntakeIntake Total 540 ml 240 ml OutputOutput Total 1100 ml 400 ml 300 ml BalanceBalance -560 ml -160 ml -300 ml Exam Constitutional: alert, oriented, other (obese) Psych: nl mood/affect Head: normocephalic, atraumatic Eyes: EOMI, nl lids, nl sclera ENMT: nl external ears & nose, nl lips & teeth, nl nasal mucosa & septum Neck: supple; No jvd, No bruits Respiratory: clear to auscultation, normal air movement Cardiovascular: regular rate and rhythm, other (right wrist intact, no bruising); No murmurs/extra sounds Gastrointestinal: soft, nl liver, spleen, non-tender Musculoskeletal: nl extremities to inspection Extremities: normal pulses; No edema Neurological: nl mental status, nl speech Skin: nl turgor; No rash or lesions Labs Result Diagram: 04/13/19 0558 04/13/19 0558 Results 24hrs Laboratory Tests Test 04/12/19 12:14 04/12/19 17:23 04/12/19 20:57 04/13/19 05:58 Bedside Glucose 211 198 173 White Blood Count 13.4 H Red Blood Count 5.65 Hemoglobin 16.3 Hematocrit 48.5 Mean Corpuscular 85.8 Volume Mean Corpuscular 28.8 L Hemoglobin Mean Corpuscular 33.6 Hemoglobin Concent Red Cell 12.8 Distribution Width Platelet Count 165 Mean Platelet Volume 11.1 H Immature 0.500 H Granulocytes % Neutrophils % 79.5 H Lymphocytes % 9.5 L Monocytes % 9.7 Eosinophils % 0.4 Basophils % 0.4 Nucleated Red Blood 0.0 Cells % Immature 0.070 H Granulocytes # Neutrophils # 10.7 H Lymphocytes # 1.3 Monocytes # 1.3 H Eosinophils # 0.1 Basophils # 0.1 Nucleated Red Blood 0.0 Cells # Sodium Level 142 Potassium Level 4.0 Chloride Level 107 Carbon Dioxide Level 23 Anion Gap 12 Blood Urea Nitrogen 12 Creatinine 0.76 Est Glomerular > 60 Filtrat Rate mL/min Glucose Level 173 Calcium Level 8.7 Magnesium Level 2.1 Total Bilirubin 1.6 H Direct Bilirubin 0.00 Indirect Bilirubin 1.6 H Aspartate Amino 250 H Transf (AST/SGOT) Alanine 101 H Aminotransferase (AL T/SGPT) Alkaline Phosphatase 82 Total Protein 7.3 Albumin 3.9 Globulin 3.40 H Albumin/Globulin 1.14 Ratio Test 04/13/19 07:58 Bedside Glucose 153 Imaging Imaging Telemetry demonstrates NSR, chart strips show no significant ectopy Medications Medications Current Medications Ondansetron HCl (Zofran Inj) 4 mg Q6H PRN IV NAUSEA AND/OR VOMITING; Start 04/11/19 at 04:00 Nitroglycerin (Nitroglycerin (Sl Tab) 0.4 Mg) 1 tab Q5M PRN SL CHEST PAIN; Start 04/11/19 at 04:00 Acetaminophen (Tylenol Liquid) 650 mg Q6H PRN PO PAIN LEVEL 1-3 OR FEVER Last administered on 04/12/19at 22:36; Admin Dose 650 MG; Start 04/11/19 at 04:00 Morphine Sulfate (morphine) 2 mg Q4H PRN IV PAIN LEVEL 7-10; Start 04/11/19 at 04:00 Docusate Sodium (Colace) 100 mg Q12H PRN PO CONSTIPATION; Start 04/11/19 at 04:00 Bisacodyl (Dulcolax) 5 mg DAILY PRN PO CONSTIPATION; Start 04/11/19 at 04:00 Aspirin (Halfprin) 81 mg DAILY PO Last administered on 04/13/19at 08:13; Admin Dose 81 MG; Start 04/11/19 at 09:00 Ticagrelor (Brilinta) 90 mg BID PO Last administered on 04/13/19at 08:15; Admin Dose 90 MG; Start 04/11/19 at 09:00 Atorvastatin Calcium (Lipitor) 80 mg DAILY@21 PO Last administered on 04/12/19at 20:58; Admin Dose 80 MG; Start 04/11/19 at 21:00 Insulin Aspart (Novolog Insulin Pen) NOVOLOG *MODERATE* ALGORITHM WITH MEALS BEDTIME SC Last administered on 04/13/19at 08:11; Admin Dose 2 UNIT; Start 04/11/19 at 11:30 Miscellaneous Information 1 ea NOTE XX ; Start 04/11/19 at 08:00 Glucose (Glutose) 15 gm Q15M PRN PO DECREASED GLUCOSE; Start 04/11/19 at 08:00 Glucose (Glutose) 22.5 gm Q15M PRN PO DECREASED GLUCOSE; Start 04/11/19 at 08:00 Dextrose (D50w Syringe) 25 ml Q15M PRN IV DECREASED GLUCOSE; Start 04/11/19 at 08:00 Dextrose (D50w Syringe) 50 ml Q15M PRN IV DECREASED GLUCOSE; Start 04/11/19 at 08:00 Glucagon (Glucagen) 1 mg Q15M PRN IM DECREASED GLUCOSE; Start 04/11/19 at 08:00 Glucose (Glutose) 15 gm Q15M PRN BUCCAL DECREASED GLUCOSE; Start 04/11/19 at 08:00 Famotidine (Pepcid) 20 mg Q12 PO Last administered on 04/13/19at 08:14; Admin Dose 20 MG; Start 04/11/19 at 21:00 Spironolactone (Aldactone) 25 mg DAILY PO Last administered on 04/13/19at 08:14; Admin Dose 25 MG; Start 04/11/19 at 14:30 Metoprolol Succinate (Toprol Xl) 200 mg DAILY PO Last administered on 04/13/19at 08:14; Admin Dose 200 MG; Start 04/12/19 at 09:00 Albuterol (Proventil 0.083% (Neb)) 2.5 mg Q6H RESP THERAPY PRN NEB wheezing; Start 04/12/19 at 11:00 Ipratropium [place] (Atrovent 0.02% (Neb)) 0.5 mg Q6H RESP THERAPY PRN NEB wheezing; Start 04/12/19 at 11:00 Sacubitril/ Valsartan (Entresto 24 Mg-26 Mg) 1 tab BID PO Last administered on 04/13/19at 08:14; Admin Dose 1 TAB; Start 04/12/19 at 21:00 Piperacillin Sod/ Tazobactam Sod 100 ml @ 200 mls/hr Q6 IVPB Last administered on 04/13/19at 07:20; Admin Dose 200 MLS/HR; Start 04/12/19 at 18:30; Stop 04/19/19 at 18:29 WALI MCCRACKEN Apr 13, 2019 08:45
--- NOTE | 2019-04-13 10:31 | PN ---
DATE: 04/12/2019 SUBJECTIVE: The patient is feeling better. No chest pain, no shortness of breath, no nausea, no vom iting. OBJECTIVE: VITAL SIGNS: Temperature 98.8, pulse 105 and regular, respirations 22, blood pressure 105/72, and ox ygen saturation 95% on room air. GENERAL: Well-developed, well-nourished male in no acute distress, lying in bed. NECK: No elevated jugular venous pressure. CHEST: Clear to auscultation bilaterally except for scant bibasilar crackles. HEART: Tachycardic, but regular. ABDOMEN: Soft, mild obesity, normoactive bowel sounds. EXTREMITIES: No cyanosis, clubbing or edema. Right wrist catheterization site mild ecchymoses but n o edema, no drainage. IMAGING STUDIES: Chest x-ray shows improvement in vascular prominence, otherwise no infiltrates or o ther noted. LABORATORY DATA: Troponin 105, triglycerides 72, cholesterol 150, LDL of 92, HDL 44. Sodium 136, po tassium 3.8, chloride 106, bicarbonate 23, BUN of 9, creatinine 0.71, blood sugar 178, calcium 8.6, w shelby blood cell count 11.2, hemoglobin 15.5, hematocrit 44.5, platelets of 160. ASSESSMENT AND PLAN: 1. ST elevation myocardial infarction. The patient is doing well with a peak and a decrease in his troponins. The patient is status post angioplasty and stenting and now adjusting medications. The p atient likely is stable for transfer to the telemetry unit, but we will defer to Dr. Wolff for fur ther recommendations. Continue to adjust medications at this time. 2. Diabetes. Stable. Continue with sliding scale and await diabetic education and recommendations, but the patient will need to be on oral medications prior to discharge. 3. Hyperlipidemia. Stable. Continue with high dose atorvastatin and diet. Dictated By: RACHEL MANZANARES MD SR/NTS Conf#: [id number] DID#: [id number] CC: VINCENT BRASWELL MD;*End*
--- NOTE | 2019-04-13 12:21 | PN ---
DATE: 04/13/2019 SUBJECTIVE: The patient complains of mild cough, no chest pain, no shortness of breath. OBJECTIVE: VITAL SIGNS: T-max yesterday of 101.0, now 99.2, pulse of 88 regular, respirations 20, blood pressur e 117/76, oxygen saturation 96% on room air. GENERAL: Well-developed male, in no acute distress, lying in bed. LUNGS: Clear to auscultation bilaterally. HEART: Regular rate and rhythm. There is II/ systolic murmur radiates to the axilla. ABDOMEN: Soft, nontender, mild obesity. EXTREMITIES: No cyanosis, clubbing or edema. NEUROLOGIC: Nonfocal. LABORATORY DATA: Sodium 142, potassium 4.0, chloride 107, bicarbonate 23, BUN of 12, creatinine 0.76 , glucose 173, magnesium 2.1, total bilirubin 1.6, AST of 250, ALT of 101. Alkaline phosphatase 82, white blood cell count 13.4, hemoglobin 16.3, hematocrit 48.5, platelets 165. Portable chest x-ray d ated 04/12/2019 shows decreased congestion, otherwise no infiltrates. ASSESSMENT AND PLAN: 1. Status post Non-ST elevation myocardial infarction/coronary disease/hypertension. The patient is doing well now on telemetry. The patient evaluated for LifeVest yesterday and this will be arranged . We will continue with current medications, telemetry monitoring and adjust as necessary. 2. Fever. The patient spiked temperature yesterday and unclear etiology. Blood cultures and urine cultures are pending at this time. Chest x-ray yesterday showed no infiltrates and today the patient has mild cough, but lung exam seems clear. We will repeat chest x-ray today. We will continue broa d spectrum antibiotics and adjust as necessary. We will also check a procalcitonin. 3. Diabetes, stable. Continue with diet and sliding scale. The patient will likely go on metformin , but as he received contrast dye few days ago we will continue to hold off on this and continue slid ing scale for now. 4. Hyperlipidemia, stable. Continue with diet and medications. Dictated By: RACHEL MANZANARES MD SR/NTS Conf#: [id number] DID#: [id number] CC: VINCENT BRASWELL MD;*EndCC*
[2019-04-13] MEDS: ATORVASTATIN 80 MG TAB PO SCH (20:31)
[2019-04-14] VITALS (12 sets, daily range): BP systolic 93–114; BP diastolic 61–77; PULSE 60–80; RESP 16–20
[2019-04-14] MEDS: PIPER-TAZO 3.375 GM IV (PMX) 100 ML IVPB SCH ×5 (00:08→23:49)
[2019-04-14] MEDS: INSULIN ASPART [NOVOLOG] 3 ML PEN SC SCH ×4 (07:55→21:00)
[2019-04-14] MEDS: metFORMIN 500 MG TAB PO SCH ×2 (09:34→17:29)
[2019-04-14] MEDS: FAMOTIDINE 20 MG TAB PO SCH ×2 (09:34→20:18)
[2019-04-14] MEDS: ASPIRIN (EC) 81 MG TAB PO SCH (09:34)
[2019-04-14] MEDS: SACUBITRIL/VALSARTAN (24mg-26mg) TABLET PO SCH ×2 (09:34→20:18)
[2019-04-14] MEDS: SPIRONOLACTONE 25 MG TAB PO SCH (09:34)
[2019-04-14] MEDS: METOPROLOL (XL) 50 MG TAB PO SCH (09:35)
[2019-04-14] MEDS: TICAGRELOR 90 MG TABLET PO SCH ×2 (10:05→20:35)
--- NOTE | 2019-04-14 10:33 | PN ---
DATE: 04/14/2019 SUBJECTIVE: The patient is feeling better, minimal cough, no chest pain, no shortness of breath. OBJECTIVE: VITAL SIGNS: T-max 99.6, now 97.2, pulse 77 and regular, respirations 20, blood pressure 102/73, oxy gen saturation 97% on room air. LUNGS: Clear to auscultation bilaterally with scant rhonchi that decreased with cough. HEART: Regular rate and rhythm, II/ systolic ejection murmur to the axilla. ABDOMEN: Soft, nontender, normoactive bowel sounds. EXTREMITIES: No cyanosis, clubbing or edema. NEUROLOGIC: Nonfocal. LABORATORY DATA: Sodium 142, potassium is pending, chloride 108, bicarbonate 24, BUN 15, creatinine 0.87, blood sugar 173, magnesium 2.1, AST of 130, ALT of 75, alkaline phosphatase is 71. White blood cell count 9.6, hemoglobin 15.7, hematocrit 46.6, platelets 175. ASSESSMENT AND PLAN: 1. Status post ST elevated myocardial infarction/coronary artery disease/hypertension. The patient is [place] Heart Association class 3, congestive heart disease with ejection fraction of approximate ly 25%. The patient has a LifeVest and will be discharged home with this. We will continue with cur rent medications, treatment plan and post-hospital the patient will be reevaluated to see if he will require implantable defibrillator. 2. Acromial pneumonia, stable with decreasing white blood cell count decreasing fever and ongoing go od oxygenation. We will continue with IV antibiotics and anticipate changing to oral antibiotics pina orrow. We will recheck procalcitonin tomorrow as well. 3. Diabetes, stable. Continue with sliding scale insulin and start metformin today at 500 mg b.i.d. 4. Continue with diet, weight loss and discharge the patient home with a glucometer. 5. Hyperlipidemia, stable. Continue with medications and diet. Dictated By: RACHEL MANZANARES MD SR/NTS Conf#: [id number] DID#: [id number] CC: VINCENT BRASWELL MD;*End*
--- NOTE | 2019-04-14 16:27 | CONS ---
Assessment/Plan Assessment/Plan Hospital Course (Demo Recall) 54 yo with large anterior wall STEMI, LVEF 25%, with fever and probable pneumonia. Imp: STEMI anterior wall s/p PCI and 2 stents to LAD, prox and mid HTN, now under better control hypercholesterolemia fever, nosocomial pneumonia DM2, newly diagnosed Plan: ASA and ticagrelor, high intensity atorvastatin Metoprolol XL 200 mg daily, spironolactone, Entresto 24/26 bid (nyha class III, EF 25%) Home with Lifevest to reduce risk of sudden cardiac . RX diabetes as per primary, patient has received diabetes education Rx PNA as per Dr. Nieto, on IV antibiotics, which can be switched to PO tomorrow Discussed better diet habits and exercise Discussed importance of medication compliance. If ANY issue with obtaining meds, he knows to contact me 18/05 Discharge plans as per Dr. Nieto, possible d/c tomorrow, he is stable for discharge from a cardiac standpoint Consultation Date/Type/Reason Admit Date/Time Apr 11, 2019 at 03:43 Initial Consult Date 04/11/19 Type of Consult Cardiology Requesting Provider: NYASIA TRIMBLE Date/Time of Note DATE: 04/14/19 TIME: 16:24 24 HR Interval Summary Free Text/Dictation In bed, mother is at bedside. Has no chest pain, no wrist pain, feels well, has [employer] LifeVest in the room, says he's confident that he knows how to wear and use it. Exam/Review of Systems Vital Signs Vitals Vital Signs Date Temp Pulse Resp B/P (MAP) Pulse Ox O2 O2 Flow FiO2 Time Delivery Rate 04/14/19 98.4 64 20 93/62 (72) 97 Room Air 15:08 04/13/19 21 03:59 04/11/19 2.0 19:50 Intake and Output 04/13/19 04/13/19 04/14/19 1515:00 23:00 07:00 IntakeIntake Total 1160 ml 440 ml 1600 ml OutputOutput Total 1200 ml 1 ml BalanceBalance -40 ml 439 ml 1600 ml Exam Constitutional: alert, oriented, well developed Psych: no complaints, nl mood/affect Head: normocephalic, atraumatic Eyes: EOMI, nl lids ENMT: nl external ears & nose Neck: No supple, No jvd, No bruits Respiratory: clear to auscultation, normal air movement Cardiovascular: regular rate and rhythm, nl pulses, other (right wrist intact, no hematoma, good pulse); No murmurs/extra sounds Gastrointestinal: soft, non-tender Musculoskeletal: nl extremities to inspection Extremities: normal pulses; No edema Neurological: nl mental status, nl speech Skin: nl turgor Labs Result Diagram: 04/14/19 0547 04/14/19 0547 Results 24hrs Laboratory Tests Test 04/13/19 17:43 04/13/19 20:34 04/14/19 02:37 04/14/19 05:47 Bedside Glucose 183 228 H 201 White Blood Count 9.6 # Red Blood Count 5.35 Hemoglobin 15.7 Hematocrit 46.6 Mean Corpuscular 87.1 Volume Mean Corpuscular 29.3 Hemoglobin Mean Corpuscular 33.7 Hemoglobin Concent Red Cell 12.6 Distribution Width Platelet Count 175 Mean Platelet Volume 11.2 H Immature 0.400 Granulocytes % Neutrophils % 71.0 Lymphocytes % 16.3 Monocytes % 9.7 Eosinophils % 2.0 Basophils % 0.6 Nucleated Red Blood 0.0 Cells % Immature 0.040 H Granulocytes # Neutrophils # 6.8 Lymphocytes # 1.6 Monocytes # 0.9 Eosinophils # 0.2 Basophils # 0.1 Nucleated Red Blood 0.0 Cells # Sodium Level 142 Potassium Level 4.3 Chloride Level 108 Carbon Dioxide Level 24 Anion Gap 10 Blood Urea Nitrogen 15 Creatinine 0.87 Est Glomerular > 60 Filtrat Rate mL/min Glucose Level 173 Calcium Level 8.8 Magnesium Level 2.1 Total Bilirubin 1.0 Direct Bilirubin 0.00 Indirect Bilirubin 1.0 Aspartate Amino 130 H Transf (AST/SGOT) Alanine 75 H Aminotransferase (AL T/SGPT) Alkaline Phosphatase 71 Total Protein 6.8 Albumin 3.6 Globulin 3.20 Albumin/Globulin 1.12 Ratio Test 04/14/19 07:56 04/14/19 11:26 Bedside Glucose 137 206 Medications Medications Current Medications Ondansetron HCl (Zofran Inj) 4 mg Q6H PRN IV NAUSEA AND/OR VOMITING; Start 04/11/19 at 04:00 Nitroglycerin (Nitroglycerin (Sl Tab) 0.4 Mg) 1 tab Q5M PRN SL CHEST PAIN; Start 04/11/19 at 04:00 Acetaminophen (Tylenol Liquid) 650 mg Q6H PRN PO PAIN LEVEL 1-3 OR FEVER Last administered on 04/12/19at 22:36; Admin Dose 650 MG; Start 04/11/19 at 04:00 Morphine Sulfate (morphine) 2 mg Q4H PRN IV PAIN LEVEL 7-10; Start 04/11/19 at 04:00 Docusate Sodium (Colace) 100 mg Q12H PRN PO CONSTIPATION; Start 04/11/19 at 04:00 Bisacodyl (Dulcolax) 5 mg DAILY PRN PO CONSTIPATION; Start 04/11/19 at 04:00 Aspirin (Halfprin) 81 mg DAILY PO Last administered on 04/14/19at 09:34; Admin Dose 81 MG; Start 04/11/19 at 09:00 Ticagrelor (Brilinta) 90 mg BID PO Last administered on 04/14/19at 10:05; Admin Dose 90 MG; Start 04/11/19 at 09:00 Atorvastatin Calcium (Lipitor) 80 mg DAILY@21 PO Last administered on 04/13/19at 20:31; Admin Dose 80 MG; Start 04/11/19 at 21:00 Insulin Aspart (Novolog Insulin Pen) NOVOLOG *MODERATE* ALGORITHM WITH MEALS BEDTIME SC Last administered on 04/14/19at 11:47; Admin Dose 4 UNIT; Start 04/11/19 at 11:30 Miscellaneous Information 1 ea NOTE XX ; Start 04/11/19 at 08:00 Glucose (Glutose) 15 gm Q15M PRN PO DECREASED GLUCOSE; Start 04/11/19 at 08:00 Glucose (Glutose) 22.5 gm Q15M PRN PO DECREASED GLUCOSE; Start 04/11/19 at 08:00 Dextrose (D50w Syringe) 25 ml Q15M PRN IV DECREASED GLUCOSE; Start 04/11/19 at 08:00 Dextrose (D50w Syringe) 50 ml Q15M PRN IV DECREASED GLUCOSE; Start 04/11/19 at 08:00 Glucagon (Glucagen) 1 mg Q15M PRN IM DECREASED GLUCOSE; Start 04/11/19 at 08:00 Glucose (Glutose) 15 gm Q15M PRN BUCCAL DECREASED GLUCOSE; Start 04/11/19 at 08:00 Famotidine (Pepcid) 20 mg Q12 PO Last administered on 04/14/19 09:34; Admin Dose 20 MG; Start 04/11/19 at 21:00 Spironolactone (Aldactone) 25 mg DAILY PO Last administered on 04/14/19 09:34; Admin Dose 25 MG; Start 04/11/19 at 14:30 Metoprolol Succinate (Toprol Xl) 200 mg DAILY PO Last administered on 04/14/19 09:35; Admin Dose 200 MG; Start 04/12/19 at 09:00 Albuterol (Proventil 0.083% (Neb)) 2.5 mg Q6H RESP THERAPY PRN NEB wheezing; Start 04/12/19 at 11:00 Ipratropium [place] (Atrovent 0.02% (Neb)) 0.5 mg Q6H RESP THERAPY PRN NEB wheezing; Start 04/12/19 at 11:00 Sacubitril/ Valsartan (Entresto 24 Mg-26 Mg) 1 tab BID PO Last administered on 04/14/19 09:34; Admin Dose 1 TAB; Start 04/12/19 at 21:00 Piperacillin Sod/ Tazobactam Sod 100 ml @ 200 mls/hr Q6 IVPB Last administered on 04/14/19at 11:37; Admin Dose 200 MLS/HR; Start 04/12/19 at 18:30; Stop 04/19/19 at 18:29 Metformin HCl (Glucophage) 500 mg BID WITH MEALS PO Last administered on 04/14/19 09:34; Admin Dose 500 MG; Start 04/14/19 at 08:30 WALI MCCRACKEN Apr 14, 2019 16:27
[2019-04-14] MEDS: ATORVASTATIN 80 MG TAB PO SCH (20:18)
[2019-04-15] VITALS: PULSE 66
[2019-04-15 03:18] VITALS: BP 108/70; PULSE 67; RESP 20
[2019-04-15 04:00] VITALS: PULSE 69
[2019-04-15 04:54] VITALS: PULSE 44
[2019-04-15] MEDS: PIPER-TAZO 3.375 GM IV (PMX) 100 ML IVPB SCH (06:04)
[2019-04-15] MEDS: metFORMIN 500 MG TAB PO SCH (08:00)
--- NOTE | 2019-04-15 08:00 | PDOCDIS ---
Discharge Instructions DIAGNOSIS Discharge Diagnosis Myocardial infarction(heart attack); s/p stent CONDITION [id number] Patient Condition: [id number] Good HOME CARE INSTRUCTIONS: [id number] Special Diet: [id number] low fat/low chol 1800 calorie ACTIVITY: [id number] Activity Restrictions: [id number] Slowly Increase Activity FOLLOW UP/APPOINTMENTS Follow-up Plan Follow up with Dr. Nieto within 2weeks; call for appointment; follow up with Dr. Wolff per her recommendations SCHOOL/WORK RELEASE May return to School/Work on: May 23, 2019 RACHEL NIETO MD- Apr 15, 2019 08:00
[2019-04-15 08:05] VITALS: BP 110/66; PULSE 78; RESP 18
[2019-04-15] MEDS ORDERED: NITR0.4T32 SL (08:06)
[2019-04-15] MEDS ORDERED: METO-319 PO (08:06)
[2019-04-15] MEDS ORDERED: FAMO20TA18 PO (08:06)
[2019-04-15] MEDS ORDERED: ASPI-1044 PO (08:06)
[2019-04-15] MEDS ORDERED: TICA90TA PO (08:06)
[2019-04-15] MEDS ORDERED: ATOR-2 PO (08:06)
[2019-04-15] MEDS ORDERED: SPIR25TA PO (08:06)
[2019-04-15] MEDS ORDERED: SACU1TAB PO (08:06)
[2019-04-15] MEDS ORDERED: METF-849 PO (08:06)
[2019-04-15] MEDS ORDERED: AMOX1TAB10 PO (08:12)
[2019-04-15 08:21] VITALS: PULSE 68
[2019-04-15] MEDS: INSULIN ASPART [NOVOLOG] 3 ML PEN SC SCH (08:52)
--- NOTE | 2019-04-15 08:52 | PN ---
DATE: 04/15/2019 SUBJECTIVE: The patient is feeling well, no chest pain, no shortness of breath, minimal cough. OBJECTIVE: VITAL SIGNS: Temperature 98.8, pulse 69, but as low as 44, respirations 20, blood pressure 108/70, o xygen saturation 96% on room air. GENERAL: Well-developed, well-nourished male in no acute distress. LUNGS: Clear to auscultation bilaterally. HEART: Regular rate and rhythm. ABDOMEN: Soft, nontender. Mild to moderate obesity. EXTREMITIES: No cyanosis, clubbing or edema. NEUROLOGIC: Nonfocal. LABORATORY DATA: Procalcitonin is 0.19, AST of 94, ALT of 82. Sodium 139, potassium 4.9, chloride 1 08, bicarbonate 24, BUN of 14, creatinine 0.92, blood sugar 151. White blood cell count 7.6, hemoglo bin 15.1, hematocrit 45.1, platelets 184. ASSESSMENT AND PLAN: 1. Status post Non-ST elevation myocardial infarction/coronary artery disease with colostomy [place] [employer] class 3 with ejection fraction of 25%. The patient is stable for discharge to [facility] on multiple medications. The patient will be discharged home on; a. Brilinta 90 mg b.i.d. b. Metoprolol XL 200 mg daily. c. Atorvastatin 80 mg daily. d. Nitrostat 0.4 mg p.r.n. e. Entresto b.i.d. f. Spironolactone 25 mg daily. The patient is to follow up with Dr. Wolff. The patient also will be discharged home with a Life est reduce risk of sudden cardiac . The patient will need to contact Dr. Wolff's office to [facility] followup appointment. 2. Hyperlipidemia. We will continue with diet and atorvastatin at 80 mg daily. 3. Diabetes. We will continue with metformin 500 mg b.i.d. along with diet. The patient will also get prescription for a glucometer. 4. Pneumonia. The patient will be discharged home on Augmentin 875 mg b.i.d. for the next 5 days. DISCHARGE PLAN: The patient is stable for discharge to home with followup with Dr. Nieto within the next [address] Wolff per her recommendations. The patient will remain off work at least unt ia 05/23/2019 and this will be reevaluated depending on his overall progress and recovery from the he art attack. Dictated By: RACHEL NIETO MD SR/NTS Conf#: [id number] DID#: [id number] CC: VINCENT BRASWELL MD;*EndCC*
[2019-04-15] MEDS: SPIRONOLACTONE 25 MG TAB PO SCH (09:40)
[2019-04-15] MEDS: SACUBITRIL/VALSARTAN (24mg-26mg) TABLET PO SCH (09:40)
[2019-04-15] MEDS: METOPROLOL (XL) 50 MG TAB PO SCH (09:40)
[2019-04-15] MEDS: FAMOTIDINE 20 MG TAB PO SCH (09:40)
[2019-04-15] MEDS: ASPIRIN (EC) 81 MG TAB PO SCH (09:40)
[2019-04-15] MEDS: TICAGRELOR 90 MG TABLET PO SCH (09:56)
--- NOTE | 2019-04-15 09:57 | CONS ---
Assessment/Plan Assessment/Plan Hospital Course (Demo Recall) 54 yo with large anterior wall STEMI, LVEF 25%, course complicated by nosocomial pneumonia. Imp: STEMI anterior wall s/p PCI and 2 stents to LAD, prox and mid HTN, controlled hypercholesterolemia nosocomial pneumonia DM2, newly diagnosed Plan: Home today ASA and ticagrelor, high intensity atorvastatin Metoprolol XL 200 mg daily, spironolactone, Entresto 24/26 bid (nyha class III, EF 25%) Home with Lifevest to reduce risk of sudden cardiac . RX diabetes as per primary, patient has received diabetes education Rx PNA as per Dr. Nieto Discussed better diet habits and exercise Discussed importance of medication compliance. If ANY issue with obtaining meds, he knows to contact me 18/05 Consultation Date/Type/Reason Admit Date/Time Apr 11, 2019 at 03:43 Initial Consult Date 04/11/19 Type of Consult Cardiology Requesting Provider: NYASIA TRIMBLE Date/Time of Note DATE: 04/15/19 TIME: 09:54 24 HR Interval Summary Free Text/Dictation Feels well this morning. Dr. Nieto has already rounded and entered discharge orders and provided the patient with Entresto samples. He has no chest rasmussen, no dyspnea and feels ready to go home. Exam/Review of Systems Vital Signs Vitals Vital Signs Date Temp Pulse Resp B/P (MAP) Pulse Ox O2 O2 Flow FiO2 Time Delivery Rate 04/15/19 68 08:21 04/15/19 98.6 18 110/66 97 Room Air 08:05 (81) 04/13/19 21 03:59 04/11/19 2.0 19:50 Intake and Output 04/14/19 04/14/19 04/15/19 1515:00 23:00 07:00 IntakeIntake Total 2100 ml 3600 ml 1200 ml OutputOutput Total 1804 ml 1803 ml BalanceBalance 296 ml 1797 ml 1200 ml Exam Constitutional: alert, oriented, well developed Psych: no complaints, nl mood/affect Head: normocephalic, atraumatic Eyes: EOMI, nl lids, nl sclera ENMT: nl external ears & nose Neck: supple; No jvd, No bruits Respiratory: clear to auscultation, normal air movement Cardiovascular: regular rate and rhythm; No murmurs/extra sounds Gastrointestinal: soft, nl liver, spleen, non-tender Musculoskeletal: nl extremities to inspection Extremities: No edema Neurological: nl mental status, nl speech Skin: nl turgor Labs Result Diagram: 04/15/19 0554 04/15/19 0554 Results 24hrs Laboratory Tests Test 04/14/19 11:26 04/14/19 17:30 04/14/19 20:15 04/15/19 05:54 Bedside Glucose 206 139 169 White Blood Count 7.6 # Red Blood Count 5.18 Hemoglobin 15.1 Hematocrit 45.1 Mean Corpuscular 87.1 Volume Mean Corpuscular 29.2 Hemoglobin Mean Corpuscular 33.5 Hemoglobin Concent Red Cell 12.8 Distribution Width Platelet Count 184 Mean Platelet Volume 11.2 H Immature 0.500 H Granulocytes % Neutrophils % 65.2 Lymphocytes % 20.4 Monocytes % 9.8 Eosinophils % 3.4 Basophils % 0.7 Nucleated Red Blood 0.0 Cells % Immature 0.040 H Granulocytes # Neutrophils # 5.0 Lymphocytes # 1.6 Monocytes # 0.8 Eosinophils # 0.3 Basophils # 0.1 Nucleated Red Blood 0.0 Cells # Sodium Level 139 Potassium Level 4.9 Chloride Level 108 Carbon Dioxide Level 24 Anion Gap 7 Blood Urea Nitrogen 14 Creatinine 0.92 Est Glomerular > 60 Filtrat Rate mL/min Glucose Level 151 Calcium Level 8.7 Magnesium Level 2.0 Total Bilirubin 0.8 Direct Bilirubin 0.00 Indirect Bilirubin 0.8 Aspartate Amino 94 H Transf (AST/SGOT) Alanine 82 H Aminotransferase (AL T/SGPT) Alkaline Phosphatase 71 Total Protein 6.8 Albumin 3.5 Globulin 3.30 H Albumin/Globulin 1.06 Ratio Procalcitonin 0.19 H Test 04/15/19 07:58 Bedside Glucose 145 Medications Medications Current Medications Ondansetron HCl (Zofran Inj) 4 mg Q6H PRN IV NAUSEA AND/OR VOMITING; Start 04/11/19 at 04:00 Nitroglycerin (Nitroglycerin (Sl Tab) 0.4 Mg) 1 tab Q5M PRN SL CHEST PAIN; Start 04/11/19 at 04:00 Acetaminophen (Tylenol Liquid) 650 mg Q6H PRN PO PAIN LEVEL 1-3 OR FEVER Last administered on 04/12/19at 22:36; Admin Dose 650 MG; Start 04/11/19 at 04:00 Morphine Sulfate (morphine) 2 mg Q4H PRN IV PAIN LEVEL 7-10; Start 04/11/19 at 04:00 Docusate Sodium (Colace) 100 mg Q12H PRN PO CONSTIPATION; Start 04/11/19 at 04:00 Bisacodyl (Dulcolax) 5 mg DAILY PRN PO CONSTIPATION; Start 04/11/19 at 04:00 Aspirin (Halfprin) 81 mg DAILY PO Last administered on 04/14/19at 09:34; Admin Dose 81 MG; Start 04/11/19 at 09:00 Ticagrelor (Brilinta) 90 mg BID PO Last administered on 04/14/19at 20:35; Admin Dose 90 MG; Start 04/11/19 at 09:00 Atorvastatin Calcium (Lipitor) 80 mg DAILY@21 PO Last administered on 04/14/19at 20:18; Admin Dose 80 MG; Start 04/11/19 at 21:00 Insulin Aspart (Novolog Insulin Pen) NOVOLOG *MODERATE* ALGORITHM WITH MEALS BEDTIME SC Last administered on 04/15/19at 08:52; Admin Dose 2 UNIT; Start 04/11/19 at 11:30 Miscellaneous Information 1 ea NOTE XX ; Start 04/11/19 at 08:00 Glucose (Glutose) 15 gm Q15M PRN PO DECREASED GLUCOSE; Start 04/11/19 at 08:00 Glucose (Glutose) 22.5 gm Q15M PRN PO DECREASED GLUCOSE; Start 04/11/19 at 08:00 Dextrose (D50w Syringe) 25 ml Q15M PRN IV DECREASED GLUCOSE; Start 04/11/19 at 08:00 Dextrose (D50w Syringe) 50 ml Q15M PRN IV DECREASED GLUCOSE; Start 04/11/19 at 08:00 Glucagon (Glucagen) 1 mg Q15M PRN IM DECREASED GLUCOSE; Start 04/11/19 at 08:00 Glucose (Glutose) 15 gm Q15M PRN BUCCAL DECREASED GLUCOSE; Start 04/11/19 at 08:00 Famotidine (Pepcid) 20 mg Q12 PO Last administered on 04/14/19at 20:18; Admin Dose 20 MG; Start 04/11/19 at 21:00 Spironolactone (Aldactone) 25 mg DAILY PO Last administered on 04/14/19at 09:34; Admin Dose 25 MG; Start 04/11/19 at 14:30 Metoprolol Succinate (Toprol Xl) 200 mg DAILY PO Last administered on 04/14/19at 09:35; Admin Dose 200 MG; Start 04/12/19 at 09:00 Albuterol (Proventil 0.083% (Neb)) 2.5 mg Q6H RESP THERAPY PRN NEB wheezing; Start 04/12/19 at 11:00 Ipratropium [place] (Atrovent 0.02% (Neb)) 0.5 mg Q6H RESP THERAPY PRN NEB wheezing; Start 04/12/19 at 11:00 Sacubitril/ Valsartan (Entresto 24 Mg-26 Mg) 1 tab BID PO Last administered on 04/14/19at 20:18; Admin Dose 1 TAB; Start 04/12/19 at 21:00 Piperacillin Sod/ Tazobactam Sod 100 ml @ 200 mls/hr Q6 IVPB Last administered on 04/15/19at 06:04; Admin Dose 200 MLS/HR; Start 04/12/19 at 18:30; Stop 04/19/19 at 18:29 Metformin HCl (Glucophage) 500 mg BID WITH MEALS PO Last administered on 04/15/19at 08:00; Admin Dose 500 MG; Start 04/14/19 at 08:30 WALI MCCRACKEN Apr 15, 2019 09:56
== END 2019-04-15 11:10 | disposition home or self-care (01) | DRG 246 ==
LOC: E/R 02:35 → REC 03:43 → EDBEDREQ 04:10 → ICU 05:45 → TEL 04-12 17:06
PROVIDERS: ADMIT Internal Medicine; ATTEND Internal Medicine
PROC: B211YZZ Fluoroscopy of Multiple Coronary Arteries using Other Contrast (ICD-10-PCS; 2019-04-11)
PROC: 027035Z Dilation of Coronary Artery, One Artery with Two Drug-eluting Intraluminal Devices, Percutaneous Approach (ICD-10-PCS; principal; 2019-04-11 03:45)
PROC: 4A023N7 Measurement of Cardiac Sampling and Pressure, Left Heart, Percutaneous Approach (ICD-10-PCS; 2019-04-11 03:45)
DX: I21.09 ST elevation (STEMI) myocardial infarction involving other coronary artery of anterior wall (principal); J18.9 Pneumonia, unspecified organism; E11.9 Type 2 diabetes mellitus without complications; E78.5 Hyperlipidemia, unspecified; E87.6 Hypokalemia; I11.0 Hypertensive heart disease with heart failure; I50.9 Heart failure, unspecified; I25.10 Atherosclerotic heart disease of native coronary artery without angina pectoris; Y95 Nosocomial condition; E66.9 Obesity, unspecified; Z68.33 Body mass index [BMI] 33.0-33.9, adult
CPT/HCPCS: 36415; 71045; 80048; 80053; 80061; 82550; 82553; 82962; 83036; 83735; 83880; 84145; 84484; 85025; 87081; 87086; 92928; 93005; 93306; 93458; 94640; 94664; C1725; C1874; C1887; J1644; J1815; J2250; J2543; J3010; J3480; J7030; Q9967